=== PATIENT | male | born 1955 | race Two or more races ===

== ENCOUNTER 2022-04-07 06:41 | Emergency (ER) | payer SELFPAY ==
[~2022-04-07] VITALS: Ht 172.7 cm; Wt 63.5 kg
[2022-04-07 07:20] LABS: HEMATOCRIT 38.8 % (36.7-47.1); MEAN CORPUSCULAR HEMOGLOBIN 27.2 uug (23.8-33.4); MEAN CORPUSCULAR VOLUME 80.5 fL (73.0-96.2); PLATELET COUNT (AUTO) 268 K/uL (152-348)
[2022-04-07 07:21] LABS: CARBON DIOXIDE 30 mmol/L (21-32); CHLORIDE 105 mmol/L (98-107); CREATININE 1.5 mg/dL (0.6-1.3); GLUCOSE 103 mg/dL (74-106); POTASSIUM 3.6 mmol/L (3.5-5.1); UREA NITROGEN, BLOOD 21 mg/dL (7-18)
[2022-04-07] MEDS ORDERED: ACETAMINOPHEN 325 MG TABLET ONE (09:09)
[2022-04-07] MEDS ORDERED: ACETAMINOPHEN 325 MG TABLET PO ONE (09:15)
[2022-04-07] MEDS ORDERED: AMLODIPINE 5 MG TABLET PO ONE (09:15)
--- NOTE | 2022-04-07 10:20 | NUR ---
Patient is resting comfortably in bed with eyes closed, NAD noted.
[2022-04-07 10:44] VITALS: BP 142/89
--- NOTE | 2022-04-07 10:44 | NUR ---
Patient discharged to home in stable condition. Written and verbal after care instructions given. Patient verbalizes understanding of instructions. Stressed follow up or return to ER for worsening s/s.
== END 2022-04-07 10:47 | disposition home or self-care (01) ==
LOC: ER 06:46
DX: S39.012A Strain of muscle, fascia and tendon of lower back, initial encounter (principal); V49.60XA Unspecified car occupant injured in collision with unspecified motor vehicles in traffic accident, initial encounter; Y92.410 Unspecified street and highway as the place of occurrence of the external cause; I10 Essential (primary) hypertension; R00.0 Tachycardia, unspecified
CPT/HCPCS: 36415; 71045; 72100; 84484; 85025; 93005; A4663